=== PATIENT | female | born 1965 | race Caucasian/White ===

== ENCOUNTER 2016-09-12 10:23 | Emergency (ER) | payer OTHER ==
--- NOTE | 2016-09-12 11:27 | ER Document Report ---
ED Medical Screen (RME) - General Chief Complaint: Dizziness Stated Complaint: DIZZINESS Time Seen by Provider: 09/12/16 11:19 Mode of Arrival: Ambulatory Information source: Patient, Relative TRAVEL OUTSIDE OF THE [place] 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 Patient is currently on Xarelto. Patient presents with an episode of near syncope while taking a shower this morning. Patient states he felt a normal when she started her shower and then while showering, she felt dizzy and lightheaded. Patient states she sat on the bed and thinks she may have had a syncopal episode at that time. Patient denies any injuries. Patient denies any chest pain or shortness of breath. At the time of her ED assessment, patient states she does feel somewhat better but not yet back to normal. Patient states last time something similar to this occurred it was due to the PE diagnosis. - Related Data Allergies/Adverse Reactions: aspirin [Aspirin] Allergy (Verified 09/12/16 10:42) azithromycin [Azithromycin] Allergy (Verified 09/12/16 10:42) Penicillins Allergy (Verified 09/12/16 10:42) peanuts Allergy (Uncoded 09/12/16 10:42) Past Medical History - General Information source: Patient, [facility] Records - Past Medical History Cardiac Medical History: Reports: Hx DVT, Hx Pulmonary Embolism Neurological Medical History: Reports: Hx Migraine Renal/ Medical History: Denies: Hx Peritoneal Dialysis GI Medical History: Reports: Hx Gastroesophageal Reflux Disease Musculoskeltal Medical History: Reports Hx Musculoskeletal Trauma Traumatic Medical History: Reports: Hx Fractures Past Surgical History: Reports: Hx Cholecystectomy - Immunizations Immunizations up to date: Yes Hx Diphtheria, Pertussis, Tetanus Vaccination: Yes - Feb 24 Review of Systems - Review of Systems Neurological/Psychological: Other - Near syncope -: Yes All other systems reviewed and negative Physical Exam - Vital signs Vitals: Temp Pulse Resp BP Pulse Ox 97.5 F 75 16 127/75 H 99 09/12/16 10:41 09/12/16 10:41 09/12/16 10:41 09/12/16 10:41 09/12/16 10:41 Interpretation: Normal - General General appearance: Appears well - HEENT Head: Normocephalic, Atraumatic Eyes: Normal Pupils: PERRL - Respiratory Respiratory status: No respiratory distress Chest status: Nontender Breath sounds: Normal Chest palpation: Normal - Cardiovascular Rhythm: Regular Heart sounds: Normal auscultation Murmur: No - Abdominal Inspection: Normal Distension: No distension Bowel sounds: Normal Tenderness: Nontender Organomegaly: No organomegaly - Back Back: Normal, Nontender - Extremities General upper extremity: Normal inspection, Nontender, Normal color, Normal ROM , Normal temperature General lower extremity: Normal inspection, Nontender, Normal color, Normal ROM , Normal temperature, Normal weight bearing. No: Chi's sign - Neurological Neuro grossly intact: Yes Cognition: Normal Orientation: AAOx4 Colleen Coma Scale Eye Opening: Spontaneous Colleen Coma Scale Verbal: Oriented [place] Coma Scale Motor: Obeys Commands Colleen Coma Scale Total: 15 Speech: Normal Motor strength normal: LUE, RUE, LLE, RLE Sensory: Normal - Skin Skin Temperature: Warm Skin Moisture: Dry Skin Color: Normal Course - Re-evaluation Re-evalutation: 09/12/16 11:27 Patient will require further management and evaluation the back treatment area. She will be followed up by the provider in that location. - Vital Signs Vital signs: Temp Pulse Resp BP Pulse Ox 97.5 F 75 16 127/75 H 99 09/12/16 10:41 09/12/16 10:41 09/12/16 10:41 09/12/16 10:41 09/12/16 10:41
[2016-09-12 11:55] LABS: ABSOLUTE BASOPHILS # (AUTO) 0.1 10^3/uL (0.0-0.2); ABSOLUTE EOSINOPHILS # (AUTO) 0.1 10^3/uL (0.0-0.6); ABSOLUTE LYMPHOCYTES (AUTO) 1.4 10^3/uL (0.5-4.7); ABSOLUTE MONOCYTES (AUTO) 0.6 10^3/uL (0.1-1.4); ABSOLUTE NEUT (AUTO) 8.6 10^3/uL (1.7-8.2); BASOPHILS % (AUTO) 1.3 % (0-2); EOSINOPHILS % (AUTO) 1.3 % (0-6); HEMATOCRIT 39.2 % (36.0-47.0); HEMOGLOBIN 12.4 g/dL (12.0-15.5); LYMPHOCYTES % (AUTO) 12.6 % (13-45); MEAN CORPUSCULAR HEMOGLOBIN 24.7 pg (27.0-33.4); MEAN CORPUSCULAR HGB CONC 31.7 g/dL (32.0-36.0); MEAN CORPUSCULAR VOLUME 78 fl (80-97); MONOCYTES % (AUTO) 5.5 % (3-13); RED BLOOD COUNT 5.03 10^6/uL (3.72-5.28); RED CELL DISTRIBUTION WIDTH 16.5 % (11.5-14.0); SEGMENTED NEUTROPHILS % (AUTO) 79.3 % (42-78); WHITE BLOOD COUNT 10.8 10^3/uL (4.0-10.5)
[2016-09-12 12:09] LABS: ALANINE AMINOTRANSFERASE 35 U/L (9-52); ALBUMIN 4.5 g/dL (3.5-5.0); ALKALINE PHOSPHATASE 93 U/L (38-126); ANION GAP 13 (5-19); ASPARTATE AMINO TRANSFERASE 24 U/L (14-36); BILIRUBIN,DIRECT 0.3 mg/dL (0.0-0.4); BILIRUBIN,TOTAL 0.7 mg/dL (0.2-1.3); BLOOD UREA NITROGEN 12 mg/dL (7-20); CALCIUM 9.5 mg/dL (8.4-10.2); CARBON DIOXIDE 23 mmol/L (22-30); CHLORIDE 103 mmol/L (98-107); CREATININE RESULT 0.94 mg/dL (0.52-1.25); GLUCOSE 120 mg/dL (75-110); POTASSIUM 4.7 mmol/L (3.6-5.0); TOTAL PROTEIN 8.2 g/dL (6.3-8.2)
--- NOTE | 2016-09-12 12:11 | RADIOLOGY REPORT (SQ) ---
EXAM DESCRIPTION: CHEST SINGLE VIEW COMPLETED DATE/TIME: 09/12/2016 12:01 pm REASON FOR STUDY: syncope COMPARISON: July 2015 EXAM PARAMETERS: NUMBER OF VIEWS: One view. TECHNIQUE: Single frontal radiographic view of the chest acquired. RADIATION DOSE: NA LIMITATIONS: None. FINDINGS: LUNGS AND PLEURA: No opacities, masses or pneumothorax. No pleural effusion. MEDIASTINUM AND HILAR STRUCTURES: No masses. Contour normal. HEART AND VASCULAR STRUCTURES: Heart normal in size. Normal vasculature. BONES: No acute findings. HARDWARE: None in the chest. OTHER: No other significant finding. IMPRESSION: NO ACUTE RADIOGRAPHIC FINDING IN THE CHEST. TECHNICAL DOCUMENTATION: JOB ID: [id number]
--- NOTE | 2016-09-12 12:34 | ER Document Report ---
ED General - General Chief Complaint: Dizziness Stated Complaint: DIZZINESS Time Seen by Provider: 09/12/16 11:19 Mode of Arrival: Ambulatory Notes: Patient says that she was about residential through her usual morning shower when she began to feel dizzy and felt as if she might pass out. She got out of the shower and went to the bed and think she laid down and might have been unconscious for just a few seconds. She is uncertain about whether she actually completely lost consciousness or not. She felt as if she may have been asleep for those few seconds. Patient has not been sick recently, but had similar symptoms when she was diagnosed about a year ago with a right lower leg deep venous thrombosis for which he was put on Xarelto which she continues to take and has not missed a dose. She has not been ill recently. Has not started any new medications. Does not have any pain in the right lower leg like previously, although she does feel that it swollen chronically in the proximal medial aspect of the right lower leg. She has some nausea but not vomiting. No UTI symptoms. No cough or cold or chest congestion. Denies shortness of breath. No fevers recently. Denies any chest pains. Says that she had some tingling of both her hands and her feet, but those symptoms have improved to where she only has a small level of tingling in the hands. PMH: Cholecystectomy, PE, right leg DVT, anemia, acid reflux, allergies. TRAVEL OUTSIDE OF THE [place] IN LAST 30 DAYS: No - Related Data Allergies/Adverse Reactions: aspirin [Aspirin] Allergy (Verified 09/12/16 10:42) azithromycin [Azithromycin] Allergy (Verified 09/12/16 10:42) Penicillins Allergy (Verified 09/12/16 10:42) peanuts Allergy (Uncoded 09/12/16 10:42) Past Medical History - General Information source: Patient, H Records - Social History Smoking Status: Unknown if Ever Smoked Family History: Reviewed & Not Pertinent, Arthritis, CAD, DM, Hyperlipidemia, Hypertension, Malignancy, Thyroid Disfunction, Other Patient has suicidal ideation: No Patient has homicidal ideation: No - Past Medical History Cardiac Medical History: Reports: Hx DVT, Hx Pulmonary Embolism Neurological Medical History: Reports: Hx Migraine GI Medical History: Reports: Hx Gastroesophageal Reflux Disease Musculoskeltal Medical History: Reports Hx Musculoskeletal Trauma Traumatic Medical History: Reports: Hx Fractures Past Surgical History: Reports: Hx Cholecystectomy - Immunizations Immunizations up to date: Yes Hx Diphtheria, Pertussis, Tetanus Vaccination: Yes - Feb 24 Review of Systems - Review of Systems Notes: REVIEW OF SYSTEMS: CONSTITUTIONAL : Denies fever. EENT: Denies eye, ear, nose or mouth or throat pain or other symptoms. CARDIOVASCULAR: Denies chest pain. RESPIRATORY: Denies cough, chest congestion, or shortness of breath. GASTROINTESTINAL: Denies abdominal pain, some nausea but no vomiting, or diarrhea. GENITOURINARY: Denies difficulty or painful urinating, urinary frequency, blood in urine. MUSCULOSKELETAL: Denies back or neck pain. Denies joint pain or swelling. SKIN: Denies rash or skin lesions. NEUROLOGICAL: See HPI. Possible LOC just a couple of seconds. Denies headache. Denies sensory loss or motor deficits. ALL OTHER SYSTEMS REVIEWED AND NEGATIVE. Physical Exam - Vital signs Vitals: Temp Pulse Resp BP Pulse Ox 97.5 F 75 16 127/75 H 99 09/12/16 10:41 09/12/16 10:41 09/12/16 10:41 09/12/16 10:41 09/12/16 10:41 Interpretation: Normal - Notes Notes: PHYSICAL EXAMINATION: GENERAL: Well-appearing, in no acute distress. HEAD: Atraumatic, normocephalic. EYES: Pupils equal round and reactive to light, extraocular movements intact. ENT: oropharynx clear without exudates. Moist mucous membranes. NECK: Normal range of motion, supple. LUNGS: Breath sounds clear and equal bilaterally. HEART: Regular rate and rhythm without murmurs. ABDOMEN: Soft, nontender. No guarding or rebound. BACK: No tenderness throughout entire back. EXTREMITIES: Normal range of motion without pain. He did Homans bilaterally. No muscular tenderness in either lower leg. I do not appreciate any significant difference in the size of either of the lower legs. Nothing of the exam suggest venous thrombosis. NEUROLOGICAL: Normal speech, normal gait. Normal sensory, motor, and reflex exams. Awake, alert, and oriented x3. Cranial nerves normal. PSYCH: Normal mood, normal affect. SKIN: Warm, dry, no rashes. Course - Re-evaluation Re-evalutation: With the exception of patient's white count 10,500, which is barely elevated, patient's labs, including a d-dimer were all normal. Patient's chest x-ray was negative. EKG was normal, as well. Patient has been asymptomatic since her arrival. Her monitor continues to show oxygen level of 100%, blood pressure 1 teens systolic and a heart rate between 70 and 80. I am not sure what caused the patient's symptoms, perhaps some vasovagal stimulation from the hot shower, but she is asymptomatic and her workup is normal and I do not see the need to put her in the hospital. will be at home with her the rest of the afternoon and she was advised, of course, to return if she had any new or worsening symptoms. 09/12/16 13:15 Went over all of patient's labs with her and her . No indications of significant infections, abnormal lab work, EKG, etc. - Vital Signs Vital signs: Temp Pulse Resp BP Pulse Ox 98.7 F 75 20 119/77 99 09/12/16 13:28 09/12/16 10:41 09/12/16 13:09 09/12/16 13:09 09/12/16 13:09 - Laboratory Result Diagrams: 09/12/16 11:38 09/12/16 11:38 Laboratory results interpreted by me: 09/12/16 09/12/16 11:38 11:38 WBC 10.8 H MCV 78 L MCH 24.7 L MCHC 31.7 L RDW 16.5 H Seg Neutrophils % 79.3 H Lymphocytes % 12.6 L Absolute Neutrophils 8.6 H Glucose 120 H - Diagnostic Test Radiology results interpreted by me: 09/12/16 13:12 Chest x-ray is normal. - EKG Interpretation by Oh EKG shows normal: Sinus rhythm Rate: Normal Rhythm: NSR When compared to previous EKG there are: No significant change Discharge - Discharge Clinical Impression: Syncope, near, Vasovagal episode Condition: Stable Disposition: HOME, SELF-CARE Additional Instructions: NEAR SYNCOPAL EPISODE: Syncope or near syncope (fainting or near-fainting) can occur from many different health problems. Or it can be a simple fainting spell requiring no treatment. It is safe for you to go home, but further evaluation will likely be necessary. Your work-up may include tests for internal bleeding, heart disease, medication problems, or near-strokes. Tests are not always required, however, depending on the nature of your problem. The warning signs of an impending faint include: dizziness, lightheadedness , nausea, hot flashes, tingling, and weakness. If this happens, lay down and put your feet up, then wait until all of these symptoms have passed before standing up again. If these episodes become recurrent, or if you develop chest pain, heart palpitations, mental confusion, blurred vision, or headache, then you should call the physician, or go to the emergency room. NORMAL EXAM AND WORKUP: At this time, your examination and workup show no significant abnormality. No significant abnormal physical findings were noted. All laboratory, EKG, and imaging (x-ray, CT scans, ultrasound) studies that were ordered show no significant abnormality. Although your examination and all studies that were ordered showed no significant abnormal finding, there are no examinations and no studies that are 100% accurate. There is always the possibility that some abnormality could exist and not be detected with physical examination or within the limits and capabilities of laboratory and other studies. You should return or follow up as you were instructed on your visit today for further evaluation if your symptoms do not resolve. Vasovagal Symptoms Your symptoms seem to be due to a fall in blood pressure, caused by the interaction of your nervous system with your circulatory system. This can result in abnormally slow pulse rate, faintness, abnormal sensations, low blood pressure, difficulty with vision, or fainting (syncope). Vasovagal symptoms may be brought on by emotional distress, pain, dehydration, bleeding, or medication effects. Often, no cause can be identified. Your exam has revealed no signs of a serious problem. Usually, no further tests are required. However, if further workup has been recommended it's important that you follow up as instructed. Should you feel lightheaded or "about to faint," you should sit or lie down as quickly as possible. The episode will usually pass. Recurring symptoms will require further evaluation to determine the cause. Call the physician if you develop severe prolonged dizziness, headache, chest pain, shortness of breath, or other new symptoms. FOLLOW-UP CARE: If you have been referred to a physician for follow-up care, call the physician s office for an appointment as you were instructed or within the next two days. If you experience worsening or a significant change in your symptoms, notify the physician immediately or return to the Emergency Department at any time for re-evaluation. Referrals: FIORELLA MORENO MD [Primary Care Provider] - Follow up as needed
--- NOTE | 2016-09-12 13:07 | EKG REPORT ---
SEVERITY:- DEFECTIVE ECG - SINUS RHYTHM DEFECTIVE LEAD v2. : Confirmed by: Giovanny Bolanos MD 12-Sep-2016 13:06:46
[2016-09-12 13:13] VITALS: BP 119/77
== END 2016-09-12 13:28 | disposition home or self-care (01) ==
LOC: ER 10:23
DX: R55 Syncope and collapse (principal); R11.0 Nausea; R20.2 Paresthesia of skin; I82.401 Acute embolism and thrombosis of unspecified deep veins of right lower extremity; Z79.01 Long term (current) use of anticoagulants; Z86.711 Personal history of pulmonary embolism; Z86.2 Personal history of diseases of the blood and blood-forming organs and certain disorders involving the immune mechanism; Z88.6 Allergy status to analgesic agent; Z88.1 Allergy status to other antibiotic agents; Z88.0 Allergy status to penicillin; Z91.010 Allergy to peanuts
CPT/HCPCS: 36415; 71010; 80053; 84484; 85025; 85379; 93005; 93010; 99284

== ENCOUNTER 2018-08-11 23:07 | Emergency (ER) | payer OTHER ==
--- NOTE | 2018-08-11 23:36 | RADIOLOGY REPORT (SQ) ---
CLINICAL HISTORY: PAIN COMPARISON: None. TECHNIQUE: XR ANKLE 3 OR MORE VIEWS 08/11/2018 11:14 PM CDT FINDINGS: There is no fracture. Joint spaces are preserved. Soft tissues are unremarkable. There is a small calcaneal spur. IMPRESSION: No acute osseous findings.
--- NOTE | 2018-08-12 01:19 | ER Document Report ---
ED General - General Chief Complaint: Leg Pain Stated Complaint: RIGHT ANKLE SWELLING Time Seen by Provider: 08/12/18 00:57 Notes: Patient is 52-year-old female presents with complaint of pain in her right ankle. States she was walking and felt the pain going up her ankle and into her leg. Now the pain is only into her ankle. She does have a history of DVT. She is on Xarelto. She has a previous history of PE as well. No chest pain. She says her previous DVT that she had 2 years ago was actually causing pain more in her proximal calf and to behind her knee. Currently she is not having that type of pain. She has not missed any doses of her Xarelto. TRAVEL OUTSIDE OF THE [place] IN LAST 30 DAYS: No - Related Data Allergies/Adverse Reactions: aspirin [Aspirin] Allergy (Verified 09/12/16 10:42) azithromycin [Azithromycin] Allergy (Verified 09/12/16 10:42) Penicillins Allergy (Verified 09/12/16 10:42) peanuts Allergy (Uncoded 09/12/16 10:42) Past Medical History - Social History Smoking Status: Never Smoker Chew tobacco use (# tins/day): No Frequency of alcohol use: None Drug Abuse: None Family History: Reviewed & Not Pertinent, Arthritis, CAD, DM, Hyperlipidemia, Hypertension, Malignancy, Thyroid Disfunction, Other Patient has suicidal ideation: No Patient has homicidal ideation: No - Past Medical History Cardiac Medical History: Reports: Hx DVT, Hx Pulmonary Embolism Neurological Medical History: Reports: Hx Migraine Renal/ Medical History: Denies: Hx Peritoneal Dialysis GI Medical History: Reports: Hx Gastroesophageal Reflux Disease Musculoskeletal Medical History: Reports Hx Musculoskeletal Trauma Traumatic Medical History: Reports: Hx Fractures Past Surgical History: Reports: Hx Cholecystectomy - Immunizations Immunizations up to date: Yes Hx Diphtheria, Pertussis, Tetanus Vaccination: Yes - Feb 24 Review of Systems - Review of Systems Notes: My Normal Review Basic REVIEW OF SYSTEMS: CONSTITUTIONAL : Denies fever, chills, or sweats. Denies recent illness. RESPIRATORY: Denies cough, cold, or chest congestion. Denies shortness of breath, difficulty breathing, or wheezing. GASTROINTESTINAL: Denies abdominal pain. Denies nausea, vomiting, or diarrhea. MUSCULOSKELETAL: Right ankle pain SKIN: Denies rash or skin lesions. HEMATOLOGIC : On Xarelto NEUROLOGICAL: Denies altered mental status or loss of consciousness. ALL OTHER SYSTEMS REVIEWED AND NEGATIVE. Physical Exam - Vital signs Vitals: Temp Pulse Resp BP Pulse Ox 97.8 F 81 22 H 127/78 H 97 08/11/18 23:30 08/11/18 23:30 08/11/18 23:30 08/11/18 23:30 08/11/18 23:30 - Notes Notes: General Appearance: Well nourished, alert, cooperative, no acute distress, no obvious discomfort. Vitals: reviewed, See vital signs table. Eyes: PERRL, EOMI, Conjuctiva clear Mouth: No decreasd moisture Lungs: No wheezing, No rales, No rhonci, No accessory muscle use, good air exchange bilaterally. Heart: Normal rate, Regular rythm, No murmur, no rub Extremities: strength 5/5 in all extremities, good pulses in all extremities, has some mild pain to palpation of the medial malleolus of the right ankle. The remainder of the leg and foot are nontender. No edema. No swelling. No redness or abnormal warmth. No signs of infection. She is Achilles tendon is intact to palpation. No tenderness over Achilles tendon. Skin: warm, dry, appropriate color, no rash Neuro: speech clear, oriented x 3, normal affect, responds appropriately to questions. Course - Re-evaluation Re-evalutation: 08/12/18 02:38 I suspect is unlikely the patient's pain is related to DVT being that her pain is really in her ankle which be very atypical for DVT; however, she initially did have pain going up the leg and she does have a history of DVT. She is currently on Xarelto. We will send her for an ultrasound. We do not have venous Doppler at nighttime and therefore I have written a outpatient prescription. I informed her of her ultrasound is negative then she should follow-up closely with her primary care doctor this week. She should return to ER immediately if she has chest pain, difficulty breathing, worsening pain or leg, or if she feels unwell in any way. Patient agrees with plan will be discharged home. Dictation of this chart was performed using voice recognition software; therefore, there may be some unintended grammatical errors. 08/12/18 02:40 - Vital Signs Vital signs: Temp Pulse Resp BP Pulse Ox 98.0 F 78 20 126/72 H 98 08/12/18 01:30 08/12/18 01:30 08/12/18 01:30 08/12/18 01:30 08/12/18 01:30 Discharge - Discharge Clinical Impression: Leg pain Condition: Good Disposition: HOME, SELF-CARE Additional Instructions: I have written a prescription for you to have an outpatient ultrasound performed to look for evidence of blood clot. I suspect this will likely be negative however with your history we will go forward to see if you are having recurrent clotting. Treatment at this time is to continue Xarelto. Want to return to ER immediately if you start having chest pain, increasing shortness of breath, or if you feel unwell in any way. Please call the number on the prescription to arrange your ultrasound. Call at 8am this morning. If your ultrasound is positive for a blood clot the tech will tell you to go to the ER. If it is negative than you will be told that they will call you with the results. Please follow-up with your doctor this week for reevaluation if your DVT study is negative. Forms: Follow-Up Outpatient Testing
[2018-08-12 01:39] VITALS: BP 126/72
== END 2018-08-12 01:39 | disposition home or self-care (01) ==
LOC: ER 23:07
DX: M79.604 Pain in right leg (principal); M25.571 Pain in right ankle and joints of right foot; Z79.01 Long term (current) use of anticoagulants
CPT/HCPCS: 99283

== ENCOUNTER → 2018-08-12 | Outpatient (CLI) | payer OTHER ==
--- NOTE | 2018-08-12 14:33 | RADIOLOGY REPORT (SQ) ---
EXAM DESCRIPTION: VENOUS UNILATERAL LOWER COMPLETED DATE/TIME: 08/12/2018 1:27 pm REASON FOR STUDY: RLE SWELLING COMPARISON: 07/11/2015 TECHNIQUE: Dynamic and static wallace scale and color images acquired of the right leg venous system. S elected spectral images acquired with additional compression and augmentation maneuvers. The contrala teral common femoral vein and saphenofemoral junction were also imaged. Images stored on PACS. LIMITATIONS: None. FINDINGS: COMMON FEMORAL: Normal phasicity, compression and augmentation. No visualized echogenic ma terial on wallace scale. No defects on color images. FEMORAL: Normal compression and augmentation. No visualized echogenic material on wallace scale. No defe cts on color images. POPLITEAL: Normal compression, augmentation. No visualized echogenic material on wallace scale. No defec ts on color images. CALF VESSELS: Normal compression, augmentation. No visualized echogenic material on wallace scale. No de fects on color images. GSV and SSV: Normal compression, augmentation. No visualized echogenic material on wallace scale. No def ects on color images. ANY DEEP VENOUS INSUFFICIENCY: Not evaluated. ANY EVIDENCE OF POPLITEAL CYST: No. OTHER: No other significant finding. CONTRALATERAL COMMON FEMORAL VEIN AND SAPHENOFEMORAL JUNCTION: Normal phasicity, compression and augmentation. No visualized echogenic material on wallace scale. No de fects on color images. IMPRESSION: 1. NO EVIDENCE OF DVT OR SVT IN THE RIGHT LEG. TECHNICAL DOCUMENTATION: JOB ID: [id number] [employer]- All Rights Reserved Reading location - IP/workstation name: [email or web address]
== END ==
LOC: SP 09:21
PROVIDERS: ATTEND Emergency Medicine
DX: M79.604 Pain in right leg (principal)
CPT/HCPCS: 93971